=== PATIENT | female | born 1990 | race Caucasian/White ===

== ENCOUNTER 2021-07-01 05:20 | Emergency (ER) | payer OTHER ==
[~2021-07-01 05:20] MED LIST: ATARAX25 MG PO; BACTRIM DS TAB1 EACH PO; KEFLEX250 MG PO
== END 2021-07-01 06:45 | disposition home or self-care (01) ==
LOC: FER 05:20
DX: U07.1 COVID-19 (principal)
CPT/HCPCS: 99284; U0002